=== PATIENT | female | born 1955 | race Caucasian/White ===

== ENCOUNTER 2019-02-14 17:18 | Emergency (ER) | payer BC ==
[2019-02-14] MEDS ORDERED: Adacel Vial IM ONE ×2 (18:00→18:16)
--- NOTE | 2019-02-14 18:05 | ERPHSYRPT ---
- History of Present Illness Time Seen by Provider: 02/14/19 18:01 Source: patient Exam Limitations: no limitations Patient Subjective Stated Complaint: Pt state "I was slicing vegitables and I cut my little finger on my right hand." Triage Nursing Assessment: Pt presented throught the front door, pt ambulates with an upright steady gait, able to speak in clear full sentences. The 1/8 inch tip of right 5th digit removed. Physician History: Pt state "I was slicing vegitables and I cut my little finger on my right hand. " The 1/8 inch tip of right 5th digit removed. No other injury noted Occurred: just prior to arrival Method of Injury: incised Severity of Pain-Max: none Severity of Pain-Current: none Extremities Pain Location: 5th finger: right Modifying Factors: Improves With: nothing Allergies/Adverse Reactions: shrimp Allergy (Severe, Verified 02/14/19 17:58) Swelling acetaminophen [From Vicodin] Adverse Reaction (Verified 02/14/19 17:58) Vomiting hydrocodone [From Vicodin] Adverse Reaction (Verified 02/14/19 17:58) Vomiting Hx Tetanus, Diphtheria Vaccination/Date Given: No Hx Influenza Vaccination/Date Given: Yes Hx Pneumococcal Vaccination/Date Given: No Immunizations Up to Date: Yes - Review of Systems Constitutional: No Symptoms Eyes: No Symptoms Ears, Nose, & Throat: No Symptoms Respiratory: No Symptoms Cardiac: No Symptoms Skin: Other (incised injury to right 5th distal tuft) - Past Medical History Pertinent Past Medical History: Yes Cardiac History: Hypertension Psycho-Social History: Depression - Past Surgical History Past Surgical History: Yes Other Surgical History: back. gastric bypass - Social History Smoking Status: Never smoker Exposure to second hand smoke: Yes Drug Use: none Patient Lives Alone: Yes - Female History Hx Now: No - Nursing Vital Signs Nursing Vital Signs: Initial Vital Signs Temperature 98.8 F 02/14/19 17:46 Pulse Rate 75 02/14/19 17:46 Respiratory Rate 16 02/14/19 17:46 Blood Pressure 126/73 02/14/19 17:46 O2 Sat by Pulse Oximetry 95 02/14/19 17:46 Pain Scale Pain Intensity 6 - Physical Exam General Appearance: no apparent distress Hand Exam: laceration, soft tissue tenderness SpO2: 95 Procedures - Laceration/Wound Repair Right Finger Wound Location: Right (5th finger) Wound's Depth, Shape: contused tissue Wound Explored: clean Irrigated: Yes Hibiclens Prep: Yes Sterile Dressing Applied?: Yes Splint Applied?: Yes - Course Nursing assessment & vital signs reviewed: Yes Ordered Tests: Active Orders 24 hr Category Date Time Status Wound Care STAT Care 02/14/19 17:59 Active Medication Summary Discontinued Medications Generic Name Dose Route Start Last Admin Trade Name Freq PRN Reason Stop Dose Admin Diphtheria/Tetanus/Acell Pertussis 0.5 ml 02/14/19 18:00 Adacel Vial IM 02/14/19 18:01 .ONCE ONE - Progress Progress: improved Counseled pt/family regarding: diagnosis, need for follow-up - Departure Departure Disposition: Home Clinical Impression: Incised wound Condition: Stable Critical Care Time: No Instructions: Crush Injury (DC) Additional Instructions: Discharge/Care Plan SUZETTE LEROY was seen on 02/14/19 in the Emergency Room. The patient was counseled regarding Diagnosis,Lab results, Imaging studies, need for follow up and when to return to the Emergency Room. Prescriptions given: Discharge Note I have spoken with the patient and/or caregivers. I have explained the patient' s condition, diagnosis and treatment plan based on the information available to me at this time. I have answered the patient's and/or caregiver's questions and addressed any concerns. The patient and/or caregivers have as good understanding of the patient's diagnosis, condition and treatment plan as can be expected at this point. The vital signs have been stable. The patient's condition is stable and appropriate for discharge from the emergency department. The patient will pursue further outpatient evaluation with the primary care physician or other designated or consulting physician as outlined in the discharge instructions. The patient and/or caregivers are agreeable to this plan of care and follow-up instructions have been explained in detail. The patient and/or caregivers have received these instruction. The patient/and or caregivers are aware that any significant change in condition or worsening of symptoms should prompt an immediate return to this or the closest emergency department or call 911.
[2019-02-14 19:11] VITALS: BP 124/74; PULSE 74; O2SAT 98
== END 2019-02-14 19:16 | disposition home or self-care (01) ==
LOC: ED 17:18
DX: S61.216A Laceration without foreign body of right little finger without damage to nail, initial encounter (principal); W31.89XA Contact with other specified machinery, initial encounter; Y93.G3 Activity, cooking and baking; Y92.9 Unspecified place or not applicable
CPT/HCPCS: 90471; 90715; 99283

== ENCOUNTER 2019-02-25 01:36 | Emergency (ER) | payer BC ==
[2019-02-25] MEDS ORDERED: Zofran 4 MG/2 ML VIAL IV PRN (01:40)
[2019-02-25] MEDS ORDERED: MORPHINE SULFATE 2 MG INJ IV PRN (01:40)
[2019-02-25 01:50] VITALS: BP 167/87; PULSE 68; O2SAT 99
[2019-02-25] MEDS ORDERED: Sodium Chloride 0.9% 1000 ML 1,000 ML IV STA (01:56)
[2019-02-25] MEDS ORDERED: TORAdol 30 mg Injection IV ONE (01:56)
[2019-02-25] MEDS ORDERED: ZOFRAN ODT 4 MG PO ONE (01:56)
[2019-02-25] MEDS ORDERED: Sodium Chloride 0.9% 1000 ML 1,000 ML ONE (02:01)
[2019-02-25] MEDS ORDERED: TORAdol 30 mg Injection ONE (02:01)
[2019-02-25] MEDS ORDERED: Zofran 4 MG/2 ML VIAL ONE (02:01)
[2019-02-25] MEDS ORDERED: Zofran 4 MG/2 ML VIAL IV ONE (02:07)
[2019-02-25 02:14] LABS: BASOPHIL % 0.5 % (0.0-0.4); Basophil (Absolute #) 0.03 (0-0.4); Eosinophil % 1.2 % (0.00-5.0); Eosinophil (Absolute #) 0.08 (0-0.5); Granulocyte Absolute (ANC) 3.76 (1.4-6.9); Granulocytes % 58.7 % (36.0-66.0); Hematocrit 36.4 % (35-47); Hemoglobin 11.9 gm/dl (12.0-16.0); Lymphocyte (Absolute #) 2.14 (1.0-4.6); Lymphocytes % 33.4 % (24.0-44.0); Mean Cell Volume 81.8 fl (78-100); Mean Corpuscular Hemoglobin 26.7 pg (26-32); Mean Corpuscular Hgb Concent. 32.7 g/dl (32-36); Mean Platelet Volume 10.4 fl (6-9.5); Monocytes % 6.2 % (0.0-12.0); Platelet Count 228 K/mm3 (150-450); Red Blood Count 4.45 M/mm3 (4.1-5.4); White Blood Count 6.4 K/mm3 (4.0-10.5)
[2019-02-25 02:28] LABS: ALBUMIN 4.2 g/dL (3.5-5.0); ALKALINE PHOSPHATASE 96 U/L (38-126); ANION GAP 15.2 MEQ/L (5-15); BLOOD UREA NITROGEN 24 mg/dL (7-17); CHLORIDE 107 mmol/L (98-107); Calcium 9.4 mg/dL (8.4-10.2); Carbon Dioxide 21 mmol/L (22-30); Creatinine 1 0.72 mg/dL (0.52-1.04); Glucose 127 mg/dL (74-106); LIPASE 119 U/L (23-300); Potassium 3.3 mmol/L (3.5-5.1); SGOT/AST 26 U/L (14-36); SGPT/ALT 22 U/L (0-35); SODIUM 139 mmol/L (137-145); Total Protein 7.6 g/dL (6.3-8.2)
[2019-02-25] MEDS ORDERED: DILAUDID 2 MG INJECTION IV PRN (02:50)
[2019-02-25] MEDS ORDERED: Hydromorphone 1 mg/ml Ampule ONE (02:52)
[2019-02-25] MEDS ORDERED: Zosyn 3.375GM/100 Ml D5W 3.375 GM/100 ML IVPB IV SCH (06:00)
--- NOTE | 2019-02-25 06:05 | ERPHSYRPT ---
- History of Present Illness Source: patient Exam Limitations: no limitations Patient Subjective Stated Complaint: pt is alert and oriented. pt is ambulatory with a steady gait. pt comes in with c/o SOB, lower abdominal pain, lower back pain, and right sided pain. pt states that she has tingling feet and hands. pt is clammy and warm to touch. pt is nauseous and dry heaving coming through the door. pt skin is clammy and monahan. not edema noted to bilat legs or feet. no wheezing noted. pt does not appear to be working to breathe but is tachypenic with pain. pt describes pain as sharp, stabbing, pain. pt is restless in the bed. abdomen is soft and tender to touch. heart sounds strong and regular. radial pulses strong and regular. pt appears very anxious. Triage Nursing Assessment: see above Physician History: Pt is a 64 y/o female that presented to the ER with severe R sided abdominal and flank pain. Pt denies F/C/S. No SOB or cough. Pt states, N/V secondary to severe abdominal pain. No dysuria, frequency and urgency. Pt is in severe distress secondary to marked pain. Timing/Duration: today Activites at Onset: none Quality: cramping, sharpness, stabbing Onset Location: RLQ, right flank Pain Radiation: RLQ, right flank Severity of Pain-Max: severe Severity of Pain-Current: mild Modifying Factors: Improves With: analgesics Associated Symptoms: nausea, vomiting Allergies/Adverse Reactions: shrimp Allergy (Severe, Verified 02/14/19 17:58) Swelling acetaminophen [From Vicodin] Adverse Reaction (Verified 02/14/19 17:58) Vomiting hydrocodone [From Vicodin] Adverse Reaction (Verified 02/14/19 17:58) Vomiting Hx Tetanus, Diphtheria Vaccination/Date Given: No Hx Influenza Vaccination/Date Given: Yes Hx Pneumococcal Vaccination/Date Given: No - Review of Systems Constitutional: No Fever, No Chills Eyes: No Symptoms Ears, Nose, & Throat: No Symptoms Respiratory: No Cough, No Dyspnea Cardiac: No Chest Pain, No Edema, No Syncope Abdominal/Gastrointestinal: Abdominal Pain, Nausea, Vomiting Genitourinary Symptoms: Flank Pain (Right) Musculoskeletal: No Back Pain, No Neck Pain Neurological: No Dizziness, No Focal Weakness, No Sensory Changes - Past Medical History Pertinent Past Medical History: Yes Neurological History: No Pertinent History ENT History: No Pertinent History Cardiac History: Hypertension Respiratory History: No Pertinent History Endocrine Medical History: No Pertinent History Musculoskeletal History: No Pertinent History GI Medical History: No Pertinent History History: No Pertinent History Psycho-Social History: Depression Female Reproductive Disorders: No Pertinent History - Past Surgical History Past Surgical History: Yes Other Surgical History: back. gastric bypass - Social History Smoking Status: Never smoker Exposure to second hand smoke: Yes Drug Use: none Patient Lives Alone: Yes - Female History Hx Now: No - Nursing Vital Signs Nursing Vital Signs: Initial Vital Signs Temperature 97.8 F 02/25/19 01:41 Pulse Rate 68 02/25/19 01:41 Respiratory Rate 18 02/25/19 01:41 Blood Pressure 167/87 02/25/19 01:41 O2 Sat by Pulse Oximetry 99 02/25/19 01:41 Pain Scale Pain Intensity 10 - Physical Exam General Appearance: severe distress Eye Exam: PERRL/EOMI, eyes nml inspection Ears, Nose, Throat Exam: normal ENT inspection, TMs normal, pharynx normal, moist mucous membranes Neck Exam: normal inspection, non-tender, supple, full range of motion Respiratory Exam: normal breath sounds, lungs clear, No respiratory distress Cardiovascular Exam: regular rate/rhythm, normal heart sounds, normal peripheral pulses Gastrointestinal/Abdomen Exam: soft, tenderness, No mass Back Exam: CVA tenderness (on the right) Extremity Exam: normal inspection, normal range of motion, pelvis stable Neurologic Exam: alert, oriented x 3, cooperative, career development associate II-XII nml as tested, normal mood/affect, sensation nml, No motor deficits SpO2: 99 - Course Nursing assessment & vital signs reviewed: Yes - CT Exams Abdomen/Pelvis CT Interpretation: Tele-radiologist Report (severe R hydroureteronephrosis secondary to 7x10mm calculus at the R UVJ.) Ordered Tests: Active Orders 24 hr Category Date Time Status ABDOMEN AND PELVIS W/0 CONTRAS [CT] Stat Exams 02/25/19 01:56 Taken CBC W DIFF Stat Lab 02/25/19 02:10 Completed CMP Stat Lab 02/25/19 02:10 Completed LIPASE Stat Lab 02/25/19 02:10 Completed UA W/RFX UR CULTURE Stat Lab 02/25/19 01:56 Uncollected Medication Summary Generic Name Dose Route Start Last Admin Trade Name Freq PRN Reason Stop Dose Admin Hydromorphone HCl 2 mg 02/25/19 02:50 02/25/19 02:56 Dilaudid 2 Mg Injection IV 03/02/19 02:49 2 mg Q4H PRN PRN Administration PAIN Discontinued Medications Generic Name Dose Route Start Last Admin Trade Name Freq PRN Reason Stop Dose Admin Hydromorphone HCl Confirm 02/25/19 02:52 Hydromorphone 1 Mg/Ml Ampule Administered 02/25/19 02:53 Dose 2 mg .ROUTE .STK-MED ONE Piperacillin Sod/Tazobactam Sod 3.375 gm in 100 mls @ 200 mls/hr 02/25/19 06: 00 Zosyn 3.375gm/100 Ml D5w IV 03/27/19 05:59 Q6HT EDITH Sodium Chloride 1,000 mls @ 999 mls/hr 02/25/19 01:56 02/25/19 02:06 Sodium Chloride 0.9% 1000 Ml IV 02/25/19 02:56 999 mls/hr .Q1H1M STA Administration Sodium Chloride Confirm 02/25/19 02:01 Sodium Chloride 0.9% 1000 Ml Administered 02/25/19 02:02 Dose 1,000 mls @ ud .ROUTE .STK-MED ONE Ketorolac Tromethamine 30 mg 02/25/19 01:56 02/25/19 02:05 Toradol 30 Mg Injection IV 02/25/19 01:57 30 mg STAT ONE Administration Ketorolac Tromethamine Confirm 02/25/19 02:01 Toradol 30 Mg Injection Administered 02/25/19 02:02 Dose 30 mg .ROUTE .STK-MED ONE Morphine Sulfate 2 mg 02/25/19 01:40 Morphine Sulfate 2 Mg Inj IV 03/02/19 01:39 Q4H PRN PRN PAIN Ondansetron HCl 4 mg 02/25/19 01:40 Zofran 4 Mg/2 Ml Vial IV 03/27/19 01:39 Q6H PRN PRN NAUSEA/VOMITING Ondansetron HCl 4 mg 02/25/19 01:56 02/25/19 02:07 Zofran Odt 4 Mg PO 02/25/19 01:57 Not Given STAT ONE Ondansetron HCl Confirm 02/25/19 02:01 Zofran 4 Mg/2 Ml Vial Administered 02/25/19 02:02 Dose 4 mg .ROUTE .STK-MED ONE Ondansetron HCl 4 mg 02/25/19 02:07 02/25/19 02:08 Zofran 4 Mg/2 Ml Vial IV 02/25/19 02:08 4 mg STAT ONE Administration Pantoprazole Sodium 40 mg 02/25/19 10:00 Protonix 40 Mg Iv IV 03/27/19 09:59 Q24H10 [facility] Lab/Rad Data: Laboratory Result Diagrams 02/25/19 02:10 02/25/19 02:10 Laboratory Results 02/25/19 02/25/19 Range/Units 02:10 02:10 WBC 6.4 (4.0-10.5) K/mm3 RBC 4.45 (4.1-5.4) M/mm3 Hgb 11.9 L (12.0-16.0) gm/dl Hct 36.4 (35-47) % MCV 81.8 (78-100) fl MCH 26.7 (26-32) pg MCHC 32.7 (32-36) g/dl RDW 15.0 H (11.5-14.0) % Plt Count 228 (150-450) K/mm3 MPV 10.4 H (6-9.5) fl Gran % 58.7 (36.0-66.0) % Eos # (Auto) 0.08 (0-0.5) Absolute Lymphs (auto) 2.14 (1.0-4.6) Absolute Monos (auto) 0.40 (0.0-1.3) Lymphocytes % 33.4 (24.0-44.0) % Monocytes % 6.2 (0.0-12.0) % Eosinophils % 1.2 (0.00-5.0) % Basophils % 0.5 (0.0-0.4) % Absolute Granulocytes 3.76 (1.4-6.9) Basophils # 0.03 (0-0.4) Sodium 139 (137-145) mmol/L Potassium 3.3 L (3.5-5.1) mmol/L Chloride 107 (98-107) mmol/L Carbon Dioxide 21 L (22-30) mmol/L Anion Gap 15.2 H (5-15) MEQ/L BUN 24 H (7-17) mg/dL Creatinine 0.72 (0.52-1.04) mg/dL Estimated GFR > 60.0 ML/MIN Glucose 127 H (74-106) mg/dL Calcium 9.4 (8.4-10.2) mg/dL Total Bilirubin 0.40 (0.2-1.3) mg/dL AST 26 (14-36) U/L ALT 22 (0-35) U/L Alkaline Phosphatase 96 (38-126) U/L Serum Total Protein 7.6 (6.3-8.2) g/dL Albumin 4.2 (3.5-5.0) g/dL Lipase 119 (23-300) U/L - Progress Progress: improved Air Movement: good Progress Note: 02/25/19 04:24 Pt was seen and examined. labs were ordered, and were negative. CT of abdomen and pelvis, shows severe R hydrouretronephrosis secondary to obstructing stone at the R UVJ. Dr [facility] and accepting the pt. Pt did get Toradol and Dilaudid IV. At this point she is comfortable. Will see patient in: other (Transfer to [facility] ER.) Counseled pt/family regarding: lab results, diagnosis, rad results - Departure Departure Disposition: Transfer Clinical Impression: Hydronephrosis due to obstruction of ureter Condition: Stable Critical Care Time: No Referrals: Provider,Unknown [Primary Care Provider] - Additional Instructions: Pt to [facility].
--- NOTE | 2019-02-25 09:38 | XRAY ---
Indication: Abdomen pain. Multiple contiguous axial images obtained through the abdomen and pelvis without contrast as ordered. Comparison: None. Lung bases demonstrates minimal bibasilar fibrosis/scarring and tiny left base calcified granuloma. No infiltrate or effusion. Heart is not enlarged. Moderate-sized hiatal hernia. There has been gastric bypass surgery. Noncontrasted stomach and bowel loops appear nonobstructed. Normal appendix. No free fluid/air. There is a 1 cm right UVJ calculus. Proximal right ureter is distended up to 14 mm and there is moderate hydronephrosis and renal edema consistent with high grade obstruction. Previous cholecystectomy and multiple pelvic surgical clips. Remaining liver, pancreas, spleen, adrenal glands, left kidney, left ureter, bladder, uterus, and aorta appear unremarkable for noncontrast exam. Osseous structures intact with mild degenerative changes throughout the thoracolumbar spine. Remote appearing T12/L4 superior endplate fractures with approximately 25% height loss. Partially visualized T8 vertebral hemangioma. No ventral or inguinal hernias. Impression: 1. 1 cm right UVJ calculus producing high-grade obstruction as detailed. 2. Incidental moderate sized hiatal hernia. 3. Remote appearing T12/L4 endplate fractures and partially visualized T8 vertebral hemangioma. Comment: Preliminary interpretation was made by [facility]. No critical discrepancy. CT DI 21.32
[2019-02-25] MEDS ORDERED: PROTONIX 40 MG IV IV SCH (10:00)
== END 2019-02-25 05:00 | disposition short-term general hospital (02) ==
LOC: ED 01:36
DX: N13.0 Hydronephrosis with ureteropelvic junction obstruction (principal); R10.31 Right lower quadrant pain; R11.2 Nausea with vomiting, unspecified; I10 Essential (primary) hypertension
CPT/HCPCS: 36415; 74176; 80053; 83690; 85025; 96360; 96374; 96375; 99285; J1170; J1885; J2405